=== PATIENT | female | born 1995 ===

== ENCOUNTER 2024-07-08 18:05 | Outpatient (REF) | payer SELFPAY ==
[2024-07-08 18:30] LABS: Appearance Urine Clear; Color Urine Yellow; Glucose Urine UA Negative (Negative); Leukocyte Esterase Urine Negative (Negative); Nitrite Urine Negative (Negative); Specific Gravity - Urine 1.025 (1.005-1.025); Urine Blood Negative (Negative); Urine Ketones Negative (Negative); Urine Protein Negative (Neg-Trace)
== END 2024-07-08 18:06 | disposition home or self-care (01) ==
LOC: HO.HHCLNP 18:05
PROVIDERS: Visit Provider Family Medicine
DX: N30.00 Acute cystitis without hematuria (principal)
CPT/HCPCS: 81003

== ENCOUNTER 2025-04-04 | Outpatient (REF) | payer SELFPAY ==
--- OUTSIDE RECORDS SUMMARY | 2025-04-07 10:12 | XMS_ITS | Encounter Summary ---
Author Organization [employer] Address [address] [facility] [address] [place] [address] Care Team Providers Care Rhia Name Role Phone Marisabel Hearn MD Primary Care Provider [phone] Encounter Details Date Type Department Care Team ([facility] Contact Info) Description 04/04/2025 Telephone [facility] CHC MED & PEDS [address] [place], [place] [phone] Marisabel Hearn MD [address] [place] [address] Social History Tobacco Use Types Packs/Day Years Used Date Smoking Tobacco: Never Passive Smoke Exposure: Never Smokeless Tobacco: Never Alcohol Use Standard Drinks/Week Comments Never 0 (1 standard drink = 0.6 oz pur e alcohol) Depression Answer Date Recorded Patient Health Questionnaire-9 Score 0 04/04/2025 Patient Health Questionnaire-9 Score 0 04/04/2025 Last PHQ-9: Questionnaire Data Not on file 0 04/04/2025 Housing Stability Answer Date Recorded What is your housing situation today? I have linsey sing 04/04/[address] you li ve. Do you have problems with any of the following? None of the above 04/04/2025 Food Insecurity Answer Date Recorded Within the past 12 months, y ou worried that your food would run out before you got money to buy more: Never True 04/04/2025 Within the past 12 months,th e food you bought just didn't last and you didn't have enough money to get more: Never True Transportation Answer Date Recorded In the past 12 months, has l ack of transportation kept you from medical appts, meetings, work or from getting things needed for daily living? No 04/04/2025 Utilities Answer Date Recorded In the past 12 months, has t he electric, gas, oil or water company threatened to shut off services in your home? No 04/04/2025 Depression Answer Date Recorded Patient Health Questionnaire-2 Score 0 04/04/2025 Internet Access Answer Date Recorded Internet Access Q1 Yes 04/04/2025 Internet Access Q2 Not on file 04/04/2025 Comments No Sex and Gender Information Value Date Recorded Sex Assigned at Female 09/19/2022 10:40 AM EDT Legal Sex Female 10:40 AM EDT Gender Identity Female 09/19/2022 10:40 AM EDT Sexual Orientation Don't know 07/01/2024 11 :29 AM EDT Sexual Orientation Straight 07/01/2024 11 :29 AM EDT documented as of this encounter Functional Status * Over the past 2 weeks, how often have you been bothered by any of the following problems? Question Answer Date of Assessment Author Patient Health Questionnaire-2 Score 0 03/20 3:02 PM EDT Zachary Mac MA * Little interest or pleasure in doing things Answer Date of Assessment Author Not at all 04/04/2025 3:02 PM EDT Zachary Mac MA * Feeling down, depressed, or hopeless Answer Date of Assessment Author Not at all 04/04/2025 3:02 PM EDT Zachary Mac MA * Trouble falling or staying asleep, or sleeping too much Answer Date of Assessment Author Not at all 04/04/2025 3:02 PM EDT Zachary Mac MA * Feeling tired or having little energy Answer Date of Assessment Author Not at all 04/04/2025 3:02 PM EDT Zachary Mac MA * Poor appetite or overeating Answer Date of Assessment Author Not at all 04/04/2025 3:02 PM EDT Zachary Mac MA * Feeling bad about yourself - or that you are a failure or have let yourself or your family down Answer Date of Assessment Author Not at all 04/04/2025 3:02 PM EDT Zachary Mac MA * Trouble concentrating on things, such as reading the newspaper or watching television Answer Date of Assessment Author Not at all 04/04/2025 3:02 PM EDT Zachary Mac MA * Moving or speaking so slowly that other people could have noticed? Or the opposite - being so fidgety or restless that you have been moving around a lot more than usual. Answer Date of Assessment Author Not at all 04/04/2025 3:02 PM EDT Zachary Mac MA * Thoughts that you would be better off or hurting yourself in some way Answer Date of Assessment Author Not at all 04/04/2025 3:02 PM EDT Zachary Mac MA * Patient Health Questionnaire-9 Score Answer Date of Assessment Author 0 04/04/2025 3:02 PM EDT Zachary Mac MA documented as of this encounter Plan of Treatment Not on file documented as of this encounter Visit Diagnoses Not on filedocumented in this encounter Additional Health Concerns Assessment Noted Time PHQ-9 Depression Total Score: 0 04/04/20 25 3:02 PM EDT documented as of this encounter Care Teams Rhia Relationship Specialty Start Date End Date Marisabel Hearn MD [address] [place] [address] PCP - General Family Medicine 02/22/22 documented as of this encounter
--- OUTSIDE RECORDS SUMMARY | 2025-04-07 10:12 | XMS_ITS | Encounter Summary ---
Author Organization [employer] Address [address] [place] [address] Care Team Providers Care Shoemaking Cutter Name Role Phone Marisabel Hearn MD Primary Care Provider [phone] Reason for Referral * Consultation (Routine) - Authorized Specialty Diagnoses / Procedures Referred By Joel cherry Referred To Contact Midwifery Diagnoses Vagina itching Marisabel Hearn MD [address] [place] [address] Phone: tel: fax: Nakita Burns CN [address] [place] [address] Phone: tel: fax: Referral ID Status Reason Start Date Expiration Date Visits Requested Visits Authorized [id number] Authorized Consult and Treat 04/04/2025 04/04/2026 1 1 Reason for Visit * Reason Comments Seasonal allergies Vaginal Itching Encounter Details Date Type Department Care Team ([facility] Contact Info) Description 04/04/2025 3:00 PM EDT Office Visit [facility] CHC MED & PEDS [address] [place], [place] [phone] Marisabel Hearn MD [address] [place], [place] [phone] Non-Mexican speaking patient (Primary Dx); Environmental and seasonal allergies; Chronic fatigue; Vagina itching; Cervical cancer screening; Rash; Vaginal itching Social History Tobacco Use Types Packs/Day Years [...] your housing situation today? I have linsey flores 04/04/[address] you li [...] AM EDT documented as of this encounter Last Filed Vital Signs Vital Sign Reading Time Taken Comments Blood Pressure 122/70 04/04/2025 3:01 PM EDT Pulse 78 04/04/2025 3:01 PM EDT Temperature 36.8 ??C (98.2 ??F) 04/04/2025 3:01 PM ED T Respiratory Rate 20 04/04/2025 3:01 PM EDT Oxygen Saturation 98% 04/04/2025 3:01 PM EDT Inhaled Oxygen Concentration - - Weight 70.4 kg (155 lb 3.2 oz) 04/04/2025 3:01 P M EDT Height 164 cm (5' 4.57 ) 04/04/2025 3:01 PM EDT Body Mass Index 26.17 04/04/2025 3:01 PM EDT documented in this encounter Functional Status * Over the [...] Mac MA documented as of this encounter Progress Notes * Marisabel Hearn MD - 04/04/2025 3:00 PM EDT Subjective Patient ID: arlene Velasquez is a 30 y.o. female who presents for Seasonal allergies andVaginal Itching. Arlene Urbina presents with multiple concerns including arm problems, weight gain, and vaginal symptoms. She has a history of nummular eczema and allergies. The patient reports ongoing issues with her arm, describing it as nummular eczema. She has been applying a prescribed ointment, which provides temporary relief, but she has run out of the medication,leading to a recurrence of symptoms. The patient expresses a desire for a refill of the ointment. Arlene also mentions recent weight gain, which she attributes to anxiety and increased eating throughout the day. She reports feeling like she's eating all day long and expresses interest in medication to reduce her appetite. The patient recalls being prescribed Wellbutrin in the past for mood, which she believes may also help with appetite control, though she doesn't remember taking it. Additionally, the patient describes persistent vaginal symptoms, including constant itching and a sensation that her vagina is getting white. These symptoms have not improved since her . She denies any vaginal discharge. The patient reports occasionally using douching or vaginal lavages, which may be contributing to her symptoms by altering her vaginal pH. Lastly, Arlene mentions having allergies but is not currently using any medication for them. Review of Systems Constitutional: Negative for appetite change, fatigue and fever. HENT: Negative for congestion, postnasal drip and rhinorrhea. Eyes: Negative for discharge and redness. Respiratory: Negative for apnea, cough, chest tightness and shortness of breath. Cardiovascular: Negative for chest pain. Gastrointestinal: Negative for abdominal pain. Endocrine: Negative for polyphagia. Genitourinary: Negative for difficulty urinating, dysuria and urgency. Musculoskeletal: Negative for arthralgias. Neurological: Negative for dizziness, light-headedness, numbness and headaches. Hematological: Negative for adenopathy. Does not bruise/bleed easily. Objective BP 122/70 (BP Location: Right arm, Patient Position: Sitting, BP Cuff Size: Adult) Pulse 78 Temp 98.2 ??F (36.8 ??C) (Oral) Resp 20 Ht 5' 4.57 (1.64 m) Wt 155 lb 3.2 oz (70.4 kg) SpO2 98% BMI 26.17 kg/m?? Physical Exam Exam conducted with a instrument lens grinder apprentice present. Constitutional: General: She is not in acute distress. Appearance: She is not ill-appearing. HENT: Head: Normocephalic and atraumatic. Nose: No congestion. Pulmonary: Effort: Pulmonary effort is normal. No respiratory distress. Breath sounds: Normal breath sounds. Genitourinary: Comments: External genitalia appear normal. Vaginal hsu look normal. Some vaginal discharge present. White mucosa observed at vaginal entrance. Labia minora slightly protruding. Perineum appears normal. Musculoskeletal: Cervical back: Normal range of motion. Neurological: General: No focal deficit present. Mental Status: She is alert. Psychiatric: Mood and Affect: Mood normal. Assessment/Plan Problem List Items Addressed This Visit Chronic fatigue Relevant Medications buPROPion XL (Wellbutrin XL) 150 MG 24 hr tablet Rash Patient reports recurrence of nummular eczema on arm after running out of previously prescribed ointment Plan: - Prescribe ointment for nummular eczema (same as previously prescribed) Relevant Medications triamcinolone (Kenalog) 0.5 % ointment Environmental and seasonal allergies Patient reports having allergies but is not currently using any medication for symptom management. Plan: - Prescribe Zyrtec for allergy symptoms - Prescribe eye drops for ocular allergy symptoms Relevant Medications cetirizine (ZyrTEC) 10 MG tablet Non-Mexican speaking patient - Primary Vaginal itching Patient reports persistent vaginal itching and a sensation of vaginal whitening. Previous BV swab was negative. Pelvic examination performed, revealing normal vaginal hsu with some discharge. External genitalia examination showed slightly open labia minora, possibly post-delivery. White appearance at vaginal entrance noted to be normal mucosa. Patient admits to occasional douching, which may disrupt vaginal pH and contribute to symptoms. Plan: - Perform pap smear and swab for infections (including bacterial vaginosis, fungal infections, and STDs) - Recommend discontinuation of douching practices - Refer patient tomidwife at [facility] for further evaluation - Advise patient to expect call for appointment scheduling at [facility] - Inform patient of pending test results and callback - Recommend repeat pap smear in 3 years if current results are normal Other Visit Diagnoses Vagina itching Relevant Orders Referral to Gynecology ([facility]) Bacterial Vaginosis Cervical cancer screening Relevant Orders Pap Smear STI testing add on (NG, [place], [facility]) Patient reports weight gain, which she attributes to anxiety and increased eating throughout the day. She expresses desire for appetite reduction. Patient's BMI does not qualify for weight-loss medications. History of Wellbutrin prescription for mood, which may also help with appetite control. Plan: - Prescribe Wellbutrin for mood and potential appetite control documented in this encounter Miscellaneous Notes * Assessment & Plan Note - Marisabel Hearn MD - 04/07/2025 9:03 AM EDT Associated Problem(s): Vaginal itching Patient reports persistent vaginal itching and a sensation of vaginal whitening. Previous BV swab was negative. Pelvic examination performed, revealing normal vaginal hsu with some discharge. External genitalia examination showed slightly open labia minora, possibly post-delivery. White appearance at vaginal entrance noted to be normal mucosa. Patient admits to occasional douching, which may disrupt vaginal pH and contribute to symptoms. Plan: - Perform pap smear and swab for infections (including bacterial vaginosis, fungal infections, and STDs) - Recommend discontinuation of douching practices - Refer patient tomidwife at [facility] location for further evaluation - Advise patient to expect call for appointment scheduling at [facility] - Inform patient of pending test results and callback - Recommend repeat pap smear in 3 years if current results are normal * Assessment & Plan Note - Marisabel Hearn MD - 04/07/2025 9:01 AM EDT Associated Problem(s): Rash Patient reports recurrence of nummular eczema on arm after running out of previously prescribed ointment Plan: - Prescribe ointment for nummular eczema (same as previously prescribed) * Assessment & Plan Note - Marisabel Hearn MD - 04/07/2025 9:01 AM EDT Associated Problem(s): Environmental and seasonal allergies Patient reports having allergies but is not currently using any medication for symptom management. Plan: - Prescribe Zyrtec for allergy symptoms - Prescribe eye drops for ocular allergy symptoms documented in this encounter Plan of Treatment Scheduled Orders Name Type Priority Associated Diagnoses Order Schedule Pap Smear Pathology and Cytology Routine Cervical cancer screening Ordered: 04/04/2025 STI testing add on (NG, CT, [facility]) Pathology and Cytology Routine Cervical cancer screening Ordered: 04/04/2025 Bacterial Vaginosis Microbiology Routine Vagina itching Ordered: 04/04/2025 Scheduled Referrals Name Type Priority Associated Diagnoses Order Schedule Referral to Gynecology ([facility]) Outpatient Referral Routine Vagina itching Expected: 04/04/2025 (Approximate), Expires: 04/04/2026 documented as of this encounter Visit Diagnoses Diagnosis Non-Mexican speaking patient- Primary Environmental and seasonal allergies Chronic fatigue Other malaise and fatigue Vagina itching Pruritus of genital organs Cervical cancer screening Screening for malignant neoplasm of the cervix Rash Rash and other nonspecific skin eruption Vaginal itching Pruritus of genital organs documented in this encounter Additional Health Concerns Assessment Noted Time PHQ-9 Depression Total Score: 0 04/04/20 25 3:02 PM EDT documented as of this encounter Care Teams Shoemaking Cutter Relationship Specialty Start Date End Date Marisabel Hearn MD [address] [place] [id number] PCP - General Family Medicine 02/22/22 documented as of this encounter
--- OUTSIDE RECORDS SUMMARY | 2025-04-07 10:12 | XMS_ITS | Encounter Summary ---
Author Organization [employer] Address [address] [facility] 7[address] [place] [address] Care Team Providers Care Fiber Product Cutting Machine Operator Name Role Phone Marisabel Hearn MD Primary Care Provider [phone] Encounter Details Date Type Department Care Team (Late st Contact Info) Description 03/06/2025 Orders Only [facility] MEDICINE [address] [place], [place] [phone] Zahida Etienne MD [address] [place], [place] [phone] Vitamin D deficiency (Primary Dx) Social History Tobacco Use Types Packs/Day Years Used Date Smoking Tobacco: Never Passive Smoke Exposure: Never Smokeless Tobacco: Never Alcohol Use Standard Drinks/Week Comments Never 0 (1 standard drink = 0.6 oz pur e alcohol) Depression Answer Date Recorded Patient Health Questionnaire-9 Score 13 10/24/2022 Housing Stability Answer Date Recorded What is your housing situation today? I have linsey flores 09/25/[address] you li ve. Do you have problems with any of the following? None of the above 09/25/2023 Food Insecurity Answer Date Recorded Within the past 12 months, y ou worried that your food would run out before you got money to buy more: Never True 09/25/2023 Within the past 12 months,th e food you bought just didn't last and you didn't have enough money to get more: Never True 04/2023 Transportation Answer Date Recorded In the past 12 months, has l ack of transportation kept you from medical appts, meetings, work or from getting things needed for daily living? No 09/25/2023 Utilities Answer Date Recorded In the past 12 months, has t he electric, gas, oil or water company threatened to shut off services in your home? No 09/25/2023 Depression Answer Date Recorded Patient Health Questionnaire-2 Score 3 10/24/2022 Comments No Sex and Gender Information Value Date Recorded Sex Assigned at Female 09/19/2022 10:40 AM EDT Legal Sex Female 10:40 AM EDT Gender Identity Female 09/19/2022 10:40 AM EDT Sexual Orientation Don't know 07/01/2024 11 :29 AM EDT Sexual Orientation Straight 07/01/2024 11 :29 AM EDT documented as of this encounter Plan of Treatment Not on file documented as of this encounter Visit Diagnoses Diagnosis Vitamin D deficiency- Primary documented in this encounter Additional Health Concerns Assessment Noted Time PHQ-9 Depression Total Score: 13 022 9:51 AM EST documented as of this encounter Care Teams Fiber Product Cutting Machine Operator Relationship Specialty Start Date End Date Marisabel Hearn MD [address] [place] [address] PCP - General Family Medicine 02/22/22 documented as of this encounter
--- OUTSIDE RECORDS SUMMARY | 2025-04-07 10:12 | XMS_ITS | Clinical Summary ---
Author Organization [employer] Address [address] [facility] [address] [place] [address] Care Team Providers Care Securities Trader Name Role Phone Marisabel Hearn MD Primary Care Provider [phone] Allergies No known active allergies Medications Diclofenac Sodium 1 % gel Apply 2 g topically every 6 (six) hours. 022 Active acetaminophen (Tylenol) 325 MG tablet Take 650 mg by mouth every 4 (four) hours if needed. 023 Active Docusate Sodium (DSS) 100 MG capsule Take 100 mg by mouth 2 times daily. 023 Active polyethylene glycol, PEG, 3350 (MiraLax) 17 GM/SCOOP powder Take 17 g by mouth 1 (one) time each day. 023 Active simethicone (Mylicon) 80 MG chewable tablet Chew 80 mg if needed in the morning, at noon, and at bedtime. For gas 023 Active EPINEPHrine (Epipen) 0.3 MG/0.3ML injection syringe 0.3 MG (0.3 ML) INTRAMUSCULARLY ONCE NEEDED FOR EXTREME REACTION FOR 2 DOSES 024 Active clotrimazole (Lotrimin AF) 1 % creamIndicati ons:Dermatoph ytosis Apply topically 2 times daily. 90 g 024 Active meloxicam (Mobic) 15 MG tabletIndicat ions:Chronic bilateral low back pain without sciatica Take 1 tablet (15 mg) by mouth Once per day. 30 tablet 11 025 2025 Active cholecalcifer ol (Vitamin D-3) 25 MCG (1000 UT) tabletIndicat ions:Vitamin D Deficiency Take 1 tablet (25 mcg) by mouth Once per day. 90 tablet 3 025 2025 Active cetirizine (ZyrTEC) 10 MG tablet Take 1 tablet (10 mg) by mouth Once per day. 90 tablet Active Ketotifen Fumarate 0.035 % solution Administer 1 drop into affected eye(s) if needed in the morning and at bedtime (itchiness). 10 mL 1 Active triamcinolone (Kenalog) 0.5 % ointment Apply topically 2 times daily. 90 g 1 Active buPROPion XL (Wellbutrin XL) 150 MG 24 hr tabletIndicat ions:Chronic fatigue Take 1 tablet (150 mg) by mouth Once per day. Do not crush, chew, or split. 30 tablet 1 025 2024 Active buPROPion XL (Wellbutrin XL) 150 MG 24 hr tabletIndicat ions:Chronic fatigue Take 1 tablet (150 mg) by mouth in the morning. Do not crush, chew, or split. 30 tablet 1 022 2024 Discontinued(R eorder (will not trigger notification to Pharmacy)) triamcinolone (Kenalog) 0.5 % ointment Apply topically 2 times daily. 90 g 1 024 2024 Discontinued(R eorder (will not trigger notification to Pharmacy)) cetirizine (ZyrTEC) 10 MG tablet Take 10 mg by mouth Once per day. 2024 Discontinued(R eorder (will not trigger notification to Pharmacy)) Active Problems Problem Noted Date Diagnosed Date Vaginal itching 04/07/2025 Assessment & Plan (04/07/2025 9:03 AM EDT): Patient reports persistent vaginal itching and a [...] douching practices - Refer patient tomidwife at [place] location for further evaluation - Advise patient to expect call for appointment scheduling at [place] - Inform patient of pending test results and callback - Recommend repeat pap smear in 3 years if current results are normal Anaphylaxis 07/08/2024 Assessment & Plan (07/08/2024 3:25 PM EDT): Referral to [facility] for further evaluation of Sx. Acute cystitis without hematuria 07/08/2024 Assessment & Plan (07/08/2024 3:23 PM EDT): Ordering urinalysis and BV self swab for further evaluation. Follow up for Pelvic Exam. Non-Bengali speaking patient 03/14/2024 History of varicella 02/12/2024 History of section complicating pregnan cy 02/12/2024 History of section 02/12/2024 Gestational diabetes mellitus (GDM) 02/12/2024 Environmental and seasonal allergies 02/12/2024 Assessment & Plan (04/07/2025 9:01 AM EDT): Patient reports having allergies but is not currently using any medication for symptom management. Plan: - Prescribe Zyrtec for allergy symptoms - Prescribe eye drops for ocular allergy symptoms Constipation 02/12/2024 Anemia 02/12/2024 Chronic left-sided low back pain without sciatic a 02/12/2024 Assessment & Plan (02/12/2024 10:11 AM EDT): -acute on chronic pain -full work up completed in past with referral to pain specialist -advised heat application and daily stretching/strengthening exercises (hand out provided) -prescription for ibuprofen sent to pharmacy -red flags to seek emergency care reviewed -follow-up 2 months Chronic bilateral low back pain without sciatica 10/24/2022 Assessment & Plan (10/24/2022 10:06 AM EST): Chronic issue since she was a child in [place], reviewed X rays done in February 2022, none contributory. Unable to send to local PT/pain medicine. Reports NSAIDs/APAP not helpful. Will send to pain specialist in [facility], reports she has transportation. Chronic fatigue 10/24/2022 Assessment & Plan (02/12/2024 10:00 AM EDT): -patient request refill of vitamins -advised daily walks for fresh air and sun exposure -follow-up as needed Assessment & Plan (10/24/2022 10:07 AM EST): PHQ-13, denies depressed mood but has symptoms, open to trial of wellbutrin, will start and f/up in [address]. [address] on recall schedule Rash 10/24/2022 Assessment & Plan (04/07/2025 9:01 AM EDT): Patient reports recurrence of nummular eczema on arm after running out of previously prescribed ointment Plan: - Prescribe ointment for nummular eczema (same as previously prescribed) Assessment & Plan (07/08/2024 3:24 PM EDT): Referral to Dermatology for further evaluation. Prescribing Triamcinolone for elbow rash. Relevant Medications Triamcinolone (kenalog) 0.5% ointment Assessment & Plan (10/24/2022 10:07 AM EST): Likely eczema, at this point will start with moderate dose steroid. Recommended to avoid washing dishes w/o gloves. Resolved Problems Problem Noted Date Diagnosed Date Resolved Date Class 1 obesity 02/12/2024 04/07/2025 Encounters Date Type Department Care Team Description 04/04/2025 3:00 PM EDT Office Visit [facility] [address] [place] [address] Marisabel Hearn MD Non-Bengali speaking patient (Primary Dx); Environmental and seasonal allergies; Chronic fatigue; Vagina itching; Cervical cancer screening; Rash; Vaginal itching 04/04/2025 Telephone [facility] [address] [place] [address] Marisabel Hearn MD 04/04/2025 Travel 03/07/2025 Telephone [facility] [address] [place] [address] Zahida Etienne MD Results 03/06/2025 Orders Only [facility] [address], [place] [phone] Zahida Etienne MD Vitamin D deficiency (Primary Dx) 03/05/2025 Orders Only [facility] [address] [place] [address] Marisabel Hearn MD from Last 3 Months Immunizations Immunization Administration Dates Next Due Hep B, adult 10/07/2022,04/19/2022,03/22/2022 Tdap 04/26/2023 Social History Tobacco Use Types Packs/Day Years Used Date Smoking Tobacco: Never Passive Smoke Exposure: Never Smokeless Tobacco: Never Tobacco Cessation:Counseling Given: Not Answered Alcohol Use Standard Drinks/Week Comments Never 0 (1 standard drink = 0.6 oz pur e alcohol) Depression Answer Date Recorded Patient Health Questionnaire-9 Score 0 04/04/2025 Patient Health Questionnaire-9 Score 0 04/04/2025 Last PHQ-9: Questionnaire Data Not on file 0 04/04/2025 Housing Stability Answer Date Recorded What is your housing situation today? I have linseykarlee flores 04/04/[address] you [...] the past 12 months, has t he [employer], gas, oil or water [employer] threatened to shut off services in your [...] Orientation Straight 07/01/2024 11 :29 AM EDT Last Filed Vital Signs Vital Sign Reading [...] Mass Index 26.17 04/04/2025 3:01 PM EDT Plan of Treatment Health Maintenance Due Date Last Done Comments HIV Screening 1996 Disability Screening 1996 Family Planning (PISQ) 01/25/2011 Hepatitis C Screening 01/25/2014 Pap Smear 01/25/2017 Dental Oral Exam 04/28/2024 10/27/2023 COVID-19 Vaccine (3 - 2023-2 5 season) 2024 07/25/2021, 06/27/2021 Influenza Vaccine (#1) 2024 Dental Prophylaxis 09/13/2024 03/13/2024 Dental X-Ray: Bitewings 10/28/2024 10/27/2023 Alcohol/Substance Use Screening 04/04/2026 04/04/2025 Depression Screening 04/04/2026 04/04/2025, 04/04/2025 SDOH Screening 04/04/2026 04/04/2025 Tobacco Screening 04/04/2026 04/04/2025 Dental X-Ray: Full Mouth 10/28/2026 10/27/2023 DTaP/Tdap/Td Vaccines (2 - T d or Tdap) 04/26/2033 04/26/2023 Zoster Vaccines (1 of 2) 01/25/2046 RSV Patients and Patients Aged 60 years or older (1 - 1-dose 75+ series) 01/25/2071 Hepatitis B Vaccines Completed 10/07/2022, 04/19/2022, 03/22/2022 HIB Vaccines Aged Out No longer eligi ble based on patient's age to complete this topic HPV Vaccines Aged Out No longer eligi ble based on patient's age to complete this topic Hepatitis A Vaccines Aged Out No long er eligible based on patient's age to complete this topic IPV Vaccines Aged Out No longer eligi ble based on patient's age to complete this topic Meningococcal B Vaccine Aged Out No l onger eligible based on patient's age to complete this topic Meningococcal Vaccine Aged Out No tyrell lucinda eligible based on patient's age to complete this topic Pneumococcal Vaccine: Pediatrics (0 to 5 Years) and At-Risk Patients (6 to 49) Years) Aged Out No longer eligible b ased on patient's age to complete this topic RSV under 20 months Aged Out No longe r eligible based on patient's age to complete this topic Rotavirus Vaccines Aged Out No longer eligible based on patient's age to complete this topic Procedures Procedure Name Priority Date/Time Associated Diagnosis Comments URINALYSIS WITH REFLEX TO MICROSCOPIC Routine 03/05/2025 10:49 AM EDT PROGESTERONE, LC/MS Routine 03/05/2025 1 0:44 AM EDT ESTROGEN, TOTAL, SERUM Routine 10:44 AM EDT LH Routine 03/05/2025 10:44 AM EDT FSH Routine 03/05/2025 10:44 AM EDT TSH Routine 03/05/2025 10:44 AM EDT VITAMIN D,25-OH,TOTAL,IA Routine 03/05/2025 10:44 AM EDT FERRITIN Routine 03/05/2025 10:44 AM EDT LIPID PANEL, STANDARD Routine 03/05/2025 10:44 AM EDT IRON AND TOTAL IRON BINDING CAPACITY Routine 03/05/2025 10:44 AM EDT COMPREHENSIVE METABOLIC PANEL Routine 03/05/2025 10:44 AM EDT CBC Routine 03/05/2025 10:44 AM EDT HEMOGLOBIN A1C Routine 03/05/2025 10:44 AM EDT VITAMIN B12 Routine 03/05/2025 10:44 AM EDT PROPHYLAXIS - ADULT Routine 03/13/2024 1 0:00 AM EDT Dental plaque INTRAORAL - COMPLETE SERIES OF RADIOGRAPHIC IMAGES Routine 10/27/2023 3:00 PM EST Encounter for dental examination Dental caries COMPREHENSIVE ORAL EVALUATION - NEW OR ESTABLISHED PATIENT Routine 10/27/2023 3:00 PM EST Encounter for dental examination Dental caries from Last 3 Months or Most Recently Relevant to Health Maintenance Results * Urinalysis with Reflex to Microscopic (03/05/2025 10:49 AM EDT) Color Urine Yellow [facility] Appearance Urine Cloudy [facility] PH 6.5 5.0 - 9.0 [facility] Glucose Urine UA Negative Negative mg/dL [facility] Urine Blood Negative Negative [facility] Specific [place] - Urine 1.025 1.005 - 1.025 [facility] Urine Protein Negative Neg-Trace mg/dL [facility] Urine Ketones Negative Negative mg/dL [facility] Nitrite Urine Negative Negative [facility] Leukocyte Esterase Urine Negative Negative [facility] 03/05/2025 10:4 9 AM EDT 03/05/2025 2:32 PM EDT Marisabel Hearn MD LAB URINE ORDERABLES Final Re sult Performing Organization Address City/[facility]/ZIP Co de Phone Number [facility] [address] [place] [phone] * (ABNORMAL) Vitamin D, 25-Hydroxy, Total, Immunoassay (03/05/2025 10:44 AM EDT) Vitamin D 25-OH Total 23.7(L) >30 ng/mL [facility] Comment: Health Based Reference Values*< 20 ??ng/mL ??Csxllwqmx01-15 ng/mL ??Insufficient> 30 ??ng/mL ??Sufficient*[employer] BYERS. N Engl J Med. 2007;357:266-280There is no well-established upper level of normal vitamin Dlevels. Some laboratories use 50 ng/mL as an upper limit ofnormal. However, toxicity is patient-dependent and may occurat any level. Careful correlation with the patient'spresentation is necessary and, if there is concern forvitamin D toxicity, treatment should be consideredirrespective of the serum level.Care must be taken in interpreting Vitamin D results fromdifferent laboratories and methodologies. ??Published datademonstrated that results from patients undergoinghemodialysis may show a negative bias when tested withvarious automated 25-OH vitamin D assays when compared toLC- MS/MS.When testing samples from patients whose predominant form ofVitamin D is Vitamin D2, such as patients receiving VitaminD2 supplementation, results that are subtherapeutic shouldbe confirmed with another method such as LC-MS/MS. 03/05/2025 10:4 4 AM EDT 03/05/2025 2:18 PM EDT us Marisabel Hearn MD LAB BLOOD ORDERABLES Final Re sult Performing Organization Address [facility]/ZIP Co de Phone Number [facility] [address] [place] [phone] * Progesterone, LC/MS (03/05/2025 10:44 AM EDT) Progesterone, LC/MS 15.0 ng/mL [facility] Comment:Adult Female Referen ce Ranges for Progesterone: Pre-Menopausal Mid Follicular: < or = 0.3 ng/mL Pre-Menopausal Surge: 0.1-1.5 ng/mL Pre-Menopausal Mid Luteal: 6.7-22.2 ng/mL Postmenopausal Phase: < or = 0.2 ng/mLThis test was developed and its analytical performancecharacteristics have been determined by [employer].It has not been cleared or approved by the FDA. This assayhas been validated pursuant to the CLIA regulations and isused for clinical purposes.THIS TEST WAS PERFORMED AT:[employer] [id number] [place] [address]KUKNBMARY RIVAS MD,PHD,AIDE 03/05/2025 10:4 4 AM EDT 03/05/2025 2:18 PM EDT Marisabel Hearn MD LAB BLOOD ORDERABLES Final Re sult Performing Organization Address [facility] Co de Phone Number [facility] [address] [place] [phone] * Iron And Total Iron Binding Capacity (03/05/2025 10:44 AM EDT) Iron 86 30 - 160 mcg/dL [facility] Total Iron Binding Capacity 274 228 - 428 mcg/dL [facility] Percent Iron Saturation 31 15 - 50 % [facility] Unsaturated Iron Binding 188 ug/dL [facility] 03/05/2025 10:4 4 AM EDT 03/05/2025 2:18 PM EDT Marisabel Hearn MD LAB BLOOD ORDERABLES Final Re sult Performing Organization Address [facility] Co de Phone Number [facility] [address] [place] [address] [place] [phone] * Estrogen, Total, Serum (03/05/2025 10:44 AM EDT) Pathologist [facility] Estrogen, Total, Serum 234 pg/mL [facility] Comment:Reference Ranges for Total Estrogen: Follicular Phase: 51-601 Luteal Phase: 87-1194 Postmenopausal: < or = 214THIS TEST WAS PERFORMED AT:[employer] [id number] [place] [address]BBREJMARY RIVAS MD,PHD,AIDE 03/05/2025 10:4 4 AM EDT 03/05/2025 2:18 PM EDT us Marisabel Hearn MD LAB BLOOD ORDERABLES Final Re sult [facility] [address] [place] [phone] * (ABNORMAL) CBC (03/05/2025 10:44 AM EDT) [facility] White Blood Count 8.9 4.8 - 10.8 X10*3/uL [facility] Red Blood Count 4.04(L) 4.20 - 5.50 X10*6/uL [facility] Hemoglobin 12.6 12.0 - 16.0 g/dl [facility] Hematocrit 36.9(L) 37.0 - 47.0 % [facility] Mean Corpuscular Volume 91.3 80.0 - 98.0 fL [facility] Mean Corpuscular Hemoglobin 31.2 27.0 - 33.0 pg [facility] Mean Corpuscular HGB Conc 34.1 31.0 - 35.0 g/dl [facility] Red Cell Distribution Width 12.2 11.0 - 16.0 % [facility] Platelet Count 369 160 - 400 X10*3/uL [facility] Mean Platelet Volume 10.3 9.4 - 12.3 fL [facility] NRBC Pct Auto 0.0 0.0 - 0.2 /100WBC [facility] NRBC Abs Auto 0.000 0.0 - 0.012 X10*3/uL [facility] 03/05/2025 10:4 4 AM EDT 03/05/2025 2:25 PM EDT Marisabel Hearn MD LAB BLOOD ORDERABLES Final Re sult Performing Organization Address City/[facility] Co de Phone Number [facility] [address] [place] [phone] * TSH (03/05/2025 10:44 AM EDT) Thyroid Stimulating Hormone 2.62 0.32 - 4.0 uIU/mL [facility] Comment:Note: A sustained TS H level above 2.5 uIU/mL may warrant further investigation. TSH 3rd Generation ([facility]) 03/05/2025 10:4 4 AM EDT 03/05/2025 2:18 PM EDT Marisabel Hearn MD LAB BLOOD ORDERABLES Final Re sult Performing Organization Address [facility] Co de Phone Number [facility] [address] [place] [phone] * Hemoglobin A1c (03/05/2025 10:44 AM EDT) Hemoglobin A1c 5.4 <6.0 % [facility] Comment:Hemoglobin A1C Refer ence Range Adults: 4.8 - 6.0 % Non diabetic: < 6.0 % Goal: < 7.0 %Additional Action Suggested: > 8.0 %Note: Hemoglobin A1c results are invalid for patients with abnormal amounts of HbF. Blood transfusions may impact the HbA1c concentration in the patient sample. Estimated Average Glucose 108 mg/dL [facility] Comment:eAG = Estimated ave rage glucose which is %A1C expressed asaverage glucose, using the formula of the Y7W-OflvwiwChlhikt Glucose study (ADAG), Diabetes Care, Vol.31,#8,2007 03/05/2025 10:4 4 AM EDT 03/05/2025 2:25 PM EDT Marisabel Hearn MD LAB BLOOD ORDERABLES Final Re sult Performing Organization Address [facility] Co de Phone Number [facility] [address] [place] [phone] * LH (03/05/2025 10:44 AM EDT) Lutenizing Hormone 7.9 mIU/mL [facility] Comment:Reference Range Foll icular Phase 1.9-12.5 Mid-Cycle Peak 8.7-76.3 Luteal Phase 0.5-16.9 Postmenopausal 10.0-54.7THIS TEST WAS PERFORMED AT:[employer] [address] [address]GROZHKEYUR SUAREZ MD 03/05/2025 10:4 4 AM EDT 03/05/2025 2:18 PM EDT Marisabel Hearn MD LAB BLOOD ORDERABLES Final Re sult Performing Organization Address [facility] Co de Phone Number [facility] [address] [place] [phone] * FSH (03/05/2025 10:44 AM EDT) Follicle Stimulating Hormone 2.0 mIU/mL [facility] Comment:Reference Range Foll icular Phase 2.5-10.2 Mid-cycle Peak 3.1-17.7 Luteal Phase 1.5- 9.1 Postmenopausal 23.0-116.3THIS TEST WAS PERFORMED AT:[facility] [address] [address]UMIGPKEYUR SUAREZ MD 03/05/2025 10:4 4 AM EDT 03/05/2025 2:18 PM EDT us Marisabel Hearn MD LAB BLOOD ORDERABLES Final Re sult Performing Organization Address [facility]/ZIP Co de Phone Number [facility] [address] [place] [phone] * Ferritin (03/05/2025 10:44 AM EDT) Ferritin 62 10 - 122 ng/mL [facility] 03/05/2025 10:4 4 AM EDT 03/05/2025 2:18 PM EDT Marisabel Hearn MD LAB BLOOD ORDERABLES Final Re sult Performing Organization Address [facility] Co de Phone Number [facility] [address] [place] [phone] * Vitamin B12 (03/05/2025 10:44 AM EDT) Pathologist [facility] Vitamin B12 561 200 - 900 pg/mL [facility] Comment:NORMAL 200-900 PG/ML INDETERMINATE 160-199 PG/ML DEFICIENT < 160 PG/ML 03/05/2025 10:4 4 AM EDT 03/05/2025 2:18 PM EDT Marisabel Hearn MD LAB BLOOD ORDERABLES Final Re sult Performing Organization Address [facility] Co de Phone Number [facility] [address] [place] [phone] * (ABNORMAL) Lipid Panel, Standard (03/05/2025 10:44 AM EDT) Triglycerides 162(H) <150 mg/dL [facility] Comment:Desirable Triglyceri de: less than 150 mg/dLBorderline High Triglyceride 150-199 mg/dLHigh Triglyceride: 200-499 mg/dLVery High Triglyceride: greater than or equal to 5OO mg/dL Cholesterol 201(H) <200 mg/dL [facility] Comment:Desirable Cholestero l: less than 200 mg/dLBorderline High Cholesterol: 200-239 mg/dLHigh Cholesterol: greater than 239 mg/dL LDL Cholesterol Calculated 124(H) <100 mg/dL [facility] Comment:Desirable LDL: less than 100 mg/dLNear Optimal/Above Optimal LDL: 110- 129 mg/dLBorderline High LDL: 130-159 mg/dLHigh LDL: 160-189 mg/dLVery High LDL: greater than or equal to 190 mg/dL HDL Cholesterol 45 >40 mg/dL [facility] Comment:Desirable HDL: great er than 40 mg/dL Note: This HDL assay may give artificially low results in patients with liver disease. 03/05/2025 10:4 4 AM EDT 03/05/2025 2:18 PM EDT us Marisabel Hearn MD LAB BLOOD ORDERABLES Final Re sult [facility] [address] [place] [phone] * (ABNORMAL) Comprehensive Metabolic Panel (03/05/2025 10:44 AM EDT) Sodium 139 135 - 145 mmol/L [facility] Potassium 3.9 3.3 - 5.1 mmol/L [facility] Chloride 107 96 - 108 mmol/L [facility] Carbon Dioxide 25 22 - 29 mmol/L [facility] Anion Gap 11(L) 12 - 20 [facility] Urea Nitrogen (BUN) 18(H) 9 - 16 mg/dL [facility] Creatinine, Serum 0.72 0.5 - 1.4 mg/dL [facility] Estimated Glomerular Filt Rate >60 [facility] Comment:Chronic Kidney Disea se: Estimated GFR < 60 mL/min/1.03u5Zrmglm Kidney Disease: Estimated GFR < 15 mL/min/1.73m2 Glucose 85 60 - 115 mg/dL [facility] Calcium 9.5 8.4 - 10.2 mg/dL [facility] Bilirubin, Total 0.4 0.0 - 1.0 mg/dL [facility] Aspartate Amino Transferase 25 5 - 31 U/L [facility] Alanine Aminotransferase 31 0 - 31 U/L [facility] Total Protein 7.5 6.5 - 8.0 g/dL [facility] Albumin Level 4.2 3.5 - 5.0 g/dL [facility] Alkaline Phosphatase 67 39 - 117 U/L [facility] 03/05/2025 10:4 4 AM EDT 03/05/2025 2:18 PM EDT us Marisabel Hearn MD LAB BLOOD ORDERABLES Final Re sult [facility] [address] [place] [phone] from Last [address] [place] [address] [place] [address] LIMITED N [employer] ST[place] ADULT Care Teams Securities Trader Relationship Specialty Start Date End Date Marisabel Hearn MD [address] [place] [phone] PCP - General Family Medicine 02/22/22
--- OUTSIDE RECORDS SUMMARY | 2025-04-07 10:13 | XMS_ITS | Encounter Summary ---
Author Organization [employer] Address [address] [place] [address] Care Team Providers Care Yarn Salvager Name Role Phone Marisabel Hearn MD Primary Care Provider [phone] Encounter Details Date Type Department Care Team (Latest Contact Info) Description 04/04/2025 Travel Social History Tobacco Use Types Packs/Day Years [...] your housing situation today? I have linsey sandra 04/04/[address] you li [...] documented as of this encounter Care Teams Yarn Salvager Relationship Specialty Start Date End Date Marisabel Hearn MD [address] [place] [phone] PCP - General Family Medicine 02/22/22 documented as of this encounter
[2025-04-08 22:28] LABS: Trichomonas (NAAT) NOT DETECTED (NOT DETECTED)
[2025-04-09 01:09] LABS: C. trachomatis RNA TMA NOT DETECTED (NOT DETECTED); N. gonorrhoeae RNA TMA NOT DETECTED (NOT DETECTED)
== END 2025-04-04 00:01 | disposition home or self-care (01) ==
LOC: HO.LNP
PROVIDERS: Visit Provider Family Medicine
DX: Z12.4 Encounter for screening for malignant neoplasm of cervix (principal); N30.00 Acute cystitis without hematuria
CPT/HCPCS: 81515; 87491; 87591; 87661; 88175